=== PATIENT | male | born 1980 | race Caucasian/White ===

== ENCOUNTER 2018-09-22 21:05 | Inpatient (IN) ==
[2018-09-22 22:33] LABS: Albumin Level 3.7 gm/dl (3.4-5.0); BUN Creatinine Ratio 10.3 (10-20); Calcium 9.4 mg/dl (8.5-10.1); Creatinine Clr Calc Pharmacy 91.8 ml/min; Est GFR (African American) 90.5; Est GFR (Non-African American) 78.1; Potassium 3.9 mmol/L (3.5-5.1)
[2018-09-22 22:36] LABS: Albumin Globulin Ratio 0.8 (0.9-2); Bilirubin,Total 0.8 mg/dl (0.2-1); Globulin 4.8 gm/dl (2.5-4.0); Total Protein 8.5 gm/dl (6.4-8.2)
[2018-09-22] MEDS ORDERED: SODIUM CHLORIDE 0.9% 1000ML 1,000 ML IV ONE (22:37)
[2018-09-22] MEDS ORDERED: ACETAMINOPHEN 500 MG TAB PO STA (22:37)
[2018-09-22 23:03] LABS: Hematocrit (blood only) 32.5 % (42-52); Hemoglobin 11.9 g/dL (14.0-18.0); Mean Corpuscular Hgb Conc 36.6 g/dL (32-36); Mean Corpuscular Volume 82.3 fL (80-100); Mean Platelet Volume 9.8 fL (7.4-10.4); Platelet Count 70 K/uL (130-400); RDW Standard Deviation 36.1 fL (36.4-46.3); Red Blood Count 3.95 M/uL (4.7-6.1); White Blood Count 0.29 K/uL (4.8-10.8)
[2018-09-22] MEDS ORDERED: CEFEPIME 2,000 MG/20 ML VIAL IV STA (23:30)
[2018-09-23] MEDS ORDERED: SODIUM CHLORIDE 0.9% 1000ML 1,000 ML IV ONE (00:16)
[2018-09-23] MEDS ORDERED: VANCOMYCIN HCL 1,500 MG in SODIUM CHLORIDE 0.9% 500 ML IV ONE (00:16)
[2018-09-23] MEDS ORDERED: VANCOMYCIN CONSULT ACTIVE PRN (00:16)
[2018-09-23 00:32] LABS: Appearance Urine Clear (Clear); Bilirubin Urine Negative (Negative); Blood Urine Negative (Negative); Color Urine Yellow; Glucose Urine UA Negative (Negative); Ketones Urine Negative (Negative); Leukocyte Esterase Urine Negative (Negative); Nitrite Urine Negative (Negative); Protein Urine Negative (Negative); Urobilinogen Urine Negative (Negative)
--- NOTE | 2018-09-23 02:06 | History & Physical Report ---
Date of Service September 23, 2018 Assessment & Plan (1) Neutropenic fever: 37-year-old male with a history of type 2 diabetes, recent diagnosis of testicular cancer on chemotherapy presents with neutropenic fever. He has had URI symptoms since Saturday. He presented to the emergency room tachycardic and with a fever of 37.9, white count was 290. Neutropenic fever �Discussed with Dr. Alexander, recommends admission �Received vancomycin and cefepime in the ED �Continuing cefepime 2 g every 8 �IV fluids��normal saline 125 cc/h �Isolation precautions Testicular cancer �Status post orchiectomy �Has been on chemotherapy through 3 weeks Type 2 diabetes �Sliding scale insulin �Diabetic diet DVT prophylaxis �Lovenox CODE STATUS Full code (2) Testicular cancer: (3) Diabetes mellitus, type 2: History of Present Illness Patient was diagnosed testicular cancer Primary Care Provider: Tim De Paz 47-year-old male with history of diabetes and recent diagnosis of testicular cancer presents with neutropenic fever. Patient states that he started having upper respiratory symptoms over the weekend. Symptoms include; sore throat, fevers, mouth sores. He denies having nausea/vomiting/diarrhea. He denies abdominal pain. He denies dysuria, shortness of breath, cough, skin lesions. Patient was diagnosed with testicular cancer on July 15 and had a orchiectomy on the . He was discovered to have hilar lymph node involvement and was subsequently started on chemotherapy 3 weeks ago. 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 Allergies Allergy/AdvReac Type Severity Reaction Status Date / Time No Known Allergies Allergy Verified 09/22/18 22:33 Home Medications Home Medications Medication Instructions Recorded Confirmed Type cyanocobalamin (vitamin B-12) 1,000 mcg PO DAILY 07/17/18 09/22/18 History [Vitamin B-12] ondansetron HCl [Zofran] 4 mg PO Q6H PRN #7 tab 08/13/18 09/22/18 Rx cholecalciferol (vitamin D3) 2,000 unit PO DAILY 09/22/18 09/22/18 History [Vitamin D3] insulin lispro [Humalog KwikPen 0 unit SUBCUT TID PRN 09/22/18 09/22/18 History Insulin] metformin 1,000 mg PO QPM 09/22/18 09/22/18 History metformin 500 mg PO QAM 09/22/18 09/22/18 History Past Med/Surg History Medical History Testicular cancer Diabetes mellitus, type 2 NIDDM Surgical History History of surgical removal of testicle LEFT Hx of oral surgery HAD TOOTH RAISED FROM GUM LINE FOR BRACES WITH ANESTHESIA Family History Father Family history of diabetes mellitus Aunt Family history of diabetes mellitus Social History Preferred Language: Upper Sorbian Communication Ability: Effective Beliefs That Will Affect Care: None Current Living Situation: Spouse Feels Safe at Home: Yes Smoking Status: Former smoker Tobacco Type: cigars Cigarettes Per Day: 1 YEARLY Second Hand Exposure: No Hx Alcohol Use: Yes Alcohol type: wine Hx Substance Use: No Review of Systems Review of Systems: All systems reviewed & are unremarkable except as noted in HPI & below Physical Exam Constitutional: WD/WN, vitals as above Eyes: PERRL, conjunctivae normal, anicteric sclerae ENMT: external ear and nose normal, oropharynx normal Neck: trachea midline, no thyromegaly Respiratory: normal respiratory effort, lungs clear to auscultation Cardiovascular: RRR, no murmur, no edema Gastrointestinal (Abdomen): normal bowel sounds, soft, nontender, no hepatosplenomegaly Musculoskeletal: no cyanosis or clubbing, extremities motor strength 5/5 Skin: no rashes, warm and dry Neurologic: patellar DTR's 2+ bilat, sensation intact Psychiatric: A+Ox3, euthymic affect Results & Data Vital Signs (Past 12 Hours) Vital Signs Temp Pulse Pulse Resp BP BP Pulse Ox 09/23/18 00:16 37.9 C H 115 H 16 118/76 97 09/22/18 23:15 92 H 16 119/75 96 09/22/18 21:10 38.3 C H 140 H 16 117/84 100 Code Status & VTE Plan Code Status Full Supervising Physician Co-Signing Physician Notes Attending addendum: I have physically seen this patient, have supervised the medical residents activities, and agree with the H&P unless as otherwise noted. Assessment and Plan: Neutropenic fever/testicular cancer status post orchiectomy on chemotherapy x3 weeks- Empiric treatment with vancomycin and cefepime IV. Follow blood cultures, urine cultures and sputum cultures. Neutropenic precautions. NSS at 125 mL's per hour. Consult oncology Dr. Alexander. Remaining orders and notations as noted. Resident Activity Tracking Resident Involvement: Resident Care Provided Care Provided: Adult [facility]
--- NOTE | 2018-09-23 02:31 | Emergency Department Note ---
History of Present Illness General Chief complaint: Illness Stated complaint: TEMP 102.4, CANCER PT,FATIGUE,MOUTH SORES Source: patient Mode of arrival: ambulatory Limitations: no limitations History of Present Illness Maximum Pain Intensity: 1 This is a 37-year-old male who presents to the emergency department complaining of a fever. The patient states that over the past 2 days, he has had a sore throat, nasal congestion and mild cough. He states that he has felt chilled, but has not taken his temperature until tonight when he noticed he had a fever. The patient states that he is currently undergoing chemotherapy for testicular cancer. Dr. Pierce is his oncologist. He does state he has had some sores in his mouth over the past several days. He denies any chest pain, shortness of breath, abdominal pain, nausea/vomiting or urinary symptoms. He denies any neck pain/stiffness or severe headache. He has been taking Tylenol at home intermittently for his symptoms and his last dose was this morning. Home Medications Home Medications Medication Instructions Recorded Confirmed Type cyanocobalamin (vitamin B-12) 1,000 mcg PO DAILY 07/17/18 09/22/18 History [Vitamin B-12] ondansetron HCl [Zofran] 4 mg PO Q6H PRN #7 tab 08/13/18 09/22/18 Rx cholecalciferol (vitamin D3) 2,000 unit PO DAILY 09/22/18 09/22/18 History [Vitamin D3] insulin lispro [Humalog KwikPen 0 unit SUBCUT TID PRN 09/22/18 09/22/18 History Insulin] metformin 1,000 mg PO QPM 09/22/18 09/22/18 History metformin 500 mg PO QAM 09/22/18 09/22/18 History Allergies Allergy/AdvReac Type Severity Reaction Status Date / Time No Known Allergies Allergy Verified 09/22/18 22:33 Past Med/Surg History Medical History Diabetes mellitus, type 2 NIDDM Surgical History History of surgical removal of testicle LEFT Hx of oral surgery HAD TOOTH RAISED FROM GUM LINE FOR BRACES WITH ANESTHESIA Social History Preferred Language: Frisian Communication Ability: Effective Floor Worker Required: No Beliefs That Will Affect Care: None Current Living Situation: Spouse Feels Safe at Home: Yes Safety Concerns: Feels Safe At This Time Smoking Status: Former smoker Tobacco Type: cigars Cigarettes Per Day: 1 YEARLY Second Hand Exposure: No Hx Alcohol Use: Yes Alcohol type: wine Hx Substance Use: No Review of Systems A total of 10 systems reviewed and were otherwise negative Physical Exam Vital Signs Vital Signs - 24 hr 09/22/18 21:10 09/22/18 23:15 09/23/18 00:16 Temperature 38.3 C H 37.9 C H Temperature Source Oral Oral Sepsis Recent Fever Within 48 Hours Yes Sepsis Action Taken by Nursing No Action Required Pulse Rate 140 H Pulse Rate [Right Finger] 92 H 115 H Pulse Rhythm [Right Finger] Regular Regular Pulse Strength [Right Finger] Normal Normal Respiratory Rate 16 16 16 Respiratory Effort / Characteristics Non-Labored Non-Labored Respiratory Depth Normal Normal Respiratory Pattern Regular Blood Pressure 117/84 Blood Pressure [Right Arm] 119/75 118/76 Blood Pressure Mean 95 Blood Pressure Mean [Right Arm] 89 90 Blood Pressure Position [Right Arm] Lying Pulse Oximetry 100 96 97 Oxygen Delivery Method Room Air Room Air Room Air VITALS: Vitals are noted on the nurse's note and reviewed by myself. Vital signs stable. GENERAL: This is a 37-year-old male, in no acute distress, nondiaphoretic, well- developed well-nourished. SKIN: The skin was without rashes. EARS: External auditory canals clear, tympanic membranes pearly doan without erythema or effusion bilaterally. EYES: Pupils equal round and reactive to light and accommodation. NOSE: Patent, turbinates without inflammation or discharge. No sinus tenderness. MOUTH: Mucous membranes moist. There are a few scattered white patches to the upper and lower gums. NECK: Supple without nuchal rigidity. No lymphadenopathy. HEART: Regular rate and rhythm without murmurs gallops or rubs. LUNGS: Clear to auscultation bilaterally without wheezes, rales or rhonchi. ABDOMEN: Positive bowel sounds x 4. Soft, nontender to palpation. NEURO: Patient was alert and oriented to person place and time. Course Consultations Consultation #1: Dr. Warren - [facility] [place] for admission. Administered Medications Enoxaparin Sodium (Lovenox) 40 mg SQ Q24H NIRALI Stop: 10/23/18 07:59 Last Admin: 09/23/18 08:40 Dose: 40 mg Documented by: [id number] Cefepime HCl 2,000 mg/ Syringe 20 mls @ 5.5 mls/min IV Q8H NIRALI; Protocol Stop: 09/25/18 07:59 Last Admin: 09/23/18 08:41 Dose: 5.5 mls/min Documented by: [id number] Sodium Chloride (Nss 1000ml) 1,000 mls @ 125 mls/hr IV .Q8H NIRALI Stop: 09/23/18 18:28 Last Admin: 09/23/18 03:37 Dose: 125 mls/hr Documented by: [id number] Insulin Aspart (Novolog Flexpen) 0 units SC ACHS NIRALI Stop: 10/23/18 07:29 Last Admin: 09/23/18 08:41 Dose: 3 units Documented by: [id number] Cosigned by: [id number] Discontinued Medications Acetaminophen (Tylenol) 1,000 mg PO NOW STA Stop: 09/22/18 22:38 Last Admin: 09/22/18 22:55 Dose: 1,000 mg Documented by: [id number] Sodium Chloride (Nss 1000ml) 1,000 mls @ 999 mls/hr IV .Q1H1M ONE Stop: 09/22/18 23:37 Last Infusion: 09/22/18 22:58 Dose: 0 mls/hr Documented by: [id number] Admin: 09/22/18 22:30 Dose: 999 mls/hr Documented by: [id number] Cefepime HCl (Maxipime) 2,000 mg in 20 mls @ 5 mls/min IV NOW STA; Protocol Stop: 09/22/18 23:33 Last Admin: 09/22/18 23:42 Dose: 5 mls/min Documented by: [id number] Sodium Chloride (Nss 1000ml) 1,000 mls @ 999 mls/hr IV .Q1H1M ONE Stop: 09/23/18 01:16 Last Infusion: 09/23/18 03:39 Dose: 0 mls/hr Documented by: [id number] Admin: 09/23/18 00:45 Dose: 999 mls/hr Documented by: [id number] Vancomycin HCl 1,500 mg/ (Sodium Chloride) 530 mls @ 200 mls/hr IV NOW ONE; Protocol Stop: 09/23/18 02:54 Last Infusion: 09/23/18 04:31 Dose: 0 mls/hr Documented by: [id number] Admin: 09/23/18 00:45 Dose: 200 mls/hr Documented by: [id number] Medical Decision Making Differential Diagnosis Differential diagnosis includes neutropenic fever, sepsis, pneumonia, UTI, cellulitis, viral illness, among others. Home Medications Current Medication List: was personally reviewed by me Laboratory Data Attestation: I reviewed the patient's lab results. Result diagrams: 09/22/18 21:43 09/22/18 21:43 Lab Results 09/22/18 09/22/18 09/22/18 Range/Units 21:43 21:43 21:43 WBC 0.29 L* (4.8-10.8) K/uL RBC 3.95 L (4.7-6.1) M/uL Hgb 11.9 L (14.0-18.0) g/dL Hct 32.5 L (42-52) % MCV 82.3 (80-100) fL MCH 30.1 (25-34) pg MCHC 36.6 H (32-36) g/dL RDW Std Deviation 36.1 L (36.4-46.3) fL RDW Coeff of Christian 12.0 (11.5-14.5) % Plt Count 70 L (130-400) K/uL MPV 9.8 (7.4-10.4) fL Immature Gran % (Auto) Cancelled Neut % (Auto) Cancelled Lymph % (Auto) Cancelled Ware % (Auto) Cancelled Eos % (Auto) Cancelled Baso % (Auto) Cancelled Immature Gran # (Auto) Cancelled Neut # (Auto) Cancelled Lymph # (Auto) Cancelled Ware # (Auto) Cancelled Eos # (Auto) Cancelled Baso # (Auto) Cancelled Neutrophils % (Manual) Cancelled Band Neutrophils % Cancelled Lymphocytes % (Manual) Cancelled Prolymphocyte % Cancelled Reactive Lymphs % (Man) Cancelled Monocytes % (Manual) Cancelled Eosinophils % (Manual) Cancelled Basophils % (Manual) Cancelled Metamyelocytes % (Man) Cancelled Myelocytes % (Man) Cancelled Promyelocytes % (Man) Cancelled Blast Cells % (Manual) Cancelled Plasma Cell % (Manual) Cancelled Other Cells % Cancelled Nucleated RBC % Cancelled Neutrophils # (Manual) Cancelled Band Neutrophils # Cancelled Total Absolute Neuts Cancelled Lymphocytes # (Manual) Cancelled Prolymphocyte # Cancelled Reactive Lymphs # Cancelled Total Abs Lymphocytes Cancelled Monocytes # (Manual) Cancelled Eosinophils # (Manual) Cancelled Basophils # (Manual) Cancelled Metamyelocytes # (Man) Cancelled Myelocytes # (Manual) Cancelled Promyelocytes # (Man) Cancelled Blast Cells # (Man) Cancelled Plasma Cell # (Manual) Cancelled Other Cells # Cancelled Nucleated RBCs # (Man) Cancelled Hypersegmented Neuts Cancelled Hyposegmented Neuts Cancelled Hypogranular Neuts Cancelled Large Granular Lymphs Cancelled # Lrg Granular Lymphs Cancelled Hairy Cells Cancelled Smudge Cells Cancelled Toxic Granulation Cancelled Toxic Vacuolation Cancelled Dohle Bodies Cancelled Riley Rods Cancelled Hypogranular Platelets Cancelled Clumped Platelets Cancelled Giant Platelets Cancelled Platelet Satelliting Cancelled RBC Morphology Cancelled Polychromasia Cancelled Hypochromasia Cancelled Poikilocytosis Cancelled Basophilic Stippling Cancelled Anisocytosis Cancelled Microcytosis Cancelled Macrocytosis Cancelled Spherocytes Cancelled Pappenheimer Bodies Cancelled Sickle Cells Cancelled Target Cells Cancelled Tear Drop Cells Cancelled Ovalocytes Cancelled Stomatocytes Cancelled Blood-[place] Bodies Cancelled Echinocytes Cancelled Acanthocytes (Spur) Cancelled Rouleaux Cancelled RBC Agglutinates Cancelled Schistocytes Cancelled RBC Morph Comment Cancelled Sezary Cell Cancelled PT 11.2 (9.0-12.0) Seconds INR 1.1 (0.9-1.1) Sodium 132 L (136-145) mmol/L Potassium 3.9 (3.5-5.1) mmol/L Chloride 96 L (98-107) mmol/L Carbon Dioxide 28 (21-32) mmol/L Anion Gap 8.0 (3-11) BUN 12 (7-18) mg/dl Creatinine 1.19 (0.6-1.4) mg/dl Est Cr Clr Drug Dosing 91.8 ml/min Est GFR ( Amer) 90.5 Est GFR (Non-Af Amer) 78.1 BUN/Creatinine Ratio 10.3 (10-20) Glucose 176 H (70-99) mg/dl Lactate (0.4-2.0) mmol/L Calcium 9.4 (8.5-10.1) mg/dl Total Bilirubin 0.8 (0.2-1) mg/dl AST 19 (15-37) U/L ALT 36 (12-78) U/L Alkaline Phosphatase 78 (45-117) U/L Total Protein 8.5 H (6.4-8.2) gm/dl Albumin 3.7 (3.4-5.0) gm/dl Globulin 4.8 H (2.5-4.0) gm/dl Albumin/Globulin Ratio 0.8 L (0.9-2) Urine Color Urine Appearance (Clear) Urine pH (4.5-7.5) Ur Specific Munger (1.000-1.030) Urine Protein (Negative) Urine Glucose (UA) (Negative) Urine Ketones (Negative) Urine Blood (Negative) Urine Nitrite (Negative) Urine Bilirubin (Negative) Urine Urobilinogen (Negative) Ur Leukocyte Esterase (Negative) Influenza Type A Ag (Neg) Influenza Type B Ag (Neg) 09/22/18 09/22/18 09/23/18 Range/Units 23:15 23:44 00:05 WBC (4.8-10.8) K/uL RBC (4.7-6.1) M/uL Hgb (14.0-18.0) g/dL Hct (42-52) % MCV (80-100) fL MCH (25-34) pg MCHC (32-36) g/dL RDW Std Deviation (36.4-46.3) fL RDW Coeff of Christian (11.5-14.5) % Plt Count (130-400) K/uL MPV (7.4-10.4) fL Immature Gran % (Auto) Neut % (Auto) Lymph % (Auto) Ware % (Auto) Eos % (Auto) Baso % (Auto) Immature Gran # (Auto) Neut # (Auto) Lymph # (Auto) Ware # (Auto) Eos # (Auto) Baso # (Auto) Neutrophils % (Manual) Band Neutrophils % Lymphocytes % (Manual) Prolymphocyte % Reactive Lymphs % (Man) Monocytes % (Manual) Eosinophils % (Manual) Basophils % (Manual) Metamyelocytes % (Man) Myelocytes % (Man) Promyelocytes % (Man) Blast Cells % (Manual) Plasma Cell % (Manual) Other Cells % Nucleated RBC % Neutrophils # (Manual) Band Neutrophils # Total Absolute Neuts Lymphocytes # (Manual) Prolymphocyte # Reactive Lymphs # Total Abs Lymphocytes Monocytes # (Manual) Eosinophils # (Manual) Basophils # (Manual) Metamyelocytes # (Man) Myelocytes # (Manual) Promyelocytes # (Man) Blast Cells # (Man) Plasma Cell # (Manual) Other Cells # Nucleated RBCs # (Man) Hypersegmented Neuts Hyposegmented Neuts Hypogranular Neuts Large Granular Lymphs # Lrg Granular Lymphs Hairy Cells Smudge Cells Toxic Granulation Toxic Vacuolation Dohle Bodies Riley Rods Hypogranular Platelets Clumped Platelets Giant Platelets Platelet Satelliting RBC Morphology Polychromasia Hypochromasia Poikilocytosis Basophilic Stippling Anisocytosis Microcytosis Macrocytosis Spherocytes Pappenheimer Bodies Sickle Cells Target Cells Tear Drop Cells Ovalocytes Stomatocytes Blood-[place] Bodies Echinocytes Acanthocytes (Spur) Rouleaux RBC Agglutinates Schistocytes RBC Morph Comment Sezary Cell PT (9.0-12.0) Seconds INR (0.9-1.1) Sodium (136-145) mmol/L Potassium (3.5-5.1) mmol/L Chloride (98-107) mmol/L Carbon Dioxide (21-32) mmol/L Anion Gap (3-11) BUN (7-18) mg/dl Creatinine (0.6-1.4) mg/dl Est Cr Clr Drug Dosing ml/min Est GFR ( Amer) Est GFR (Non-Af Amer) BUN/Creatinine Ratio (10-20) Glucose (70-99) mg/dl Lactate 1.0 (0.4-2.0) mmol/L Calcium (8.5-10.1) mg/dl Total Bilirubin (0.2-1) mg/dl AST (15-37) U/L ALT (12-78) U/L Alkaline Phosphatase (45-117) U/L Total Protein (6.4-8.2) gm/dl Albumin (3.4-5.0) gm/dl Globulin (2.5-4.0) gm/dl Albumin/Globulin Ratio (0.9-2) Urine Color Yellow Urine Appearance Clear (Clear) Urine pH 7.0 (4.5-7.5) Ur Specific Munger 1.010 (1.000-1.030) Urine Protein Negative (Negative) Urine Glucose (UA) Negative (Negative) Urine Ketones Negative (Negative) Urine Blood Negative (Negative) Urine Nitrite Negative (Negative) Urine Bilirubin Negative (Negative) Urine Urobilinogen Negative (Negative) Ur Leukocyte Esterase Negative (Negative) Influenza Type A Ag Neg for Influ A (Neg) Influenza Type B Ag Neg for Influ B (Neg) Imaging Data Attestation: I personally reviewed and interpreted this imaging study as follows: My Impression: CHEST 1 VIEW: No evidence of pneumonia or pneumothorax. Cardiac silhouette normal. Blood Pressure Blood Pressure Findings: Normal blood pressure MDM Narrative The patient is a 37-year-old male currently on chemotherapy for testicular cancer who presents today complaining of fever. Labs revealed leukopenia with a white blood cell count of 0.29. Lactate is not elevated. Blood cultures drawn and pending. Chest x-ray does not show any evidence of pneumonia. Influenza testing negative. Urinalysis not suggestive of UTI. Given patient's neutropenia, he will be started on broad-spectrum antibiotics and admitted to the hospitalist service for further evaluation and care. Patient remained stable while in the emergency department. He was given fluid resuscitation as well as initial doses of cefepime and vancomycin. Impression & Plan Neutropenic fever Discharge Plan Visit Data *Final* Discharge Date/Time: 09/23/18 02:10 Chief Complaint: Illness Stated Complaint: TEMP 102.4, CANCER PT,FATIGUE,MOUTH SORES ED Provider: Antonio Alonso ED Midlevel Provider: Kathy Juárez Discharge Problem: Neutropenic fever Patient Disposition: Admitted As Inpatient Discharge Instructions Interventions: ED Discharge Assessment Last Done: 09/23/18 02:10
[2018-09-23] MEDS ORDERED: DEXTROSE 50% 50 ML SYRINGE IV PRN (02:45)
[2018-09-23] MEDS ORDERED: GLUCAGON FOR INJ 1 MG VIAL SQ PRN (02:45)
[2018-09-23] MEDS ORDERED: CARBOHYDRATES FOR HYPOGLYCEMIA PO PRN (02:45)
[2018-09-23] MEDS ORDERED: GLUCOSE 10 TABS/TUBE PO PRN (02:45)
[2018-09-23] MEDS ORDERED: GLUCOSE 40% GEL 15 GM TUBE PO PRN (02:45)
[2018-09-23] MEDS: SODIUM CHLORIDE 0.9% 1000ML 1,000 ML IV SCH ×2 (03:37→11:03)
[2018-09-23 06:59] LABS: INR 1.1 (0.9-1.1); Prothrombin Time 11.2 Seconds (9.0-12.0)
--- NOTE | 2018-09-23 07:06 | XRay Report ---
SINGLE VIEW CHEST CLINICAL HISTORY: Fever. FINDINGS: An AP, portable, upright chest radiograph is obtained. No prior studies are available for c omparison at the time of dictation. The examination is degraded by portable technique and patient rot ation. The cardiomediastinal silhouette is unremarkable. The lungs and pleural spaces are clear. No pneumothorax is seen. The bony thorax is grossly intact. IMPRESSION: No active disease in the chest. Electronically signed by: Maicol Harmon M.D. 09/23/2018 7:04 AM
[2018-09-23] MEDS: ENOXAPARIN INJ 40 MG/0.4 ML SYR SQ SCH (08:40)
[2018-09-23] MEDS: INSULIN ASPART 100 UNITS/ML 3 ML PEN SC SCH ×4 (08:41→20:37)
[2018-09-23] MEDS: CEFEPIME 2,000 MG in SYRINGE 7.5 ML IV SCH ×3 (08:41→23:08)
[2018-09-23] MEDS ORDERED: BLEOMYCIN SULFATE IV SCH (15:30)
[2018-09-23] MEDS ORDERED: SODIUM CHLORIDE 0.9% IV SCH (15:30)
[2018-09-23] MEDS: ACETAMINOPHEN 325 MG TAB PO PRN ×2 (15:38→20:35)
--- NOTE | 2018-09-23 16:18 | Oncology Consultation ---
Date of Consultation September 23, 2018 Assessment & Plan (1) Neutropenic fever: He has febrile neutropenia with no localizing signs or symptoms for a bacterial infection. These events are often due to bacterial translocation from the gut to the bloodstream. He should receive broad-spectrum, anti-pseudomonal gram negative coverage. His current therapy is adequate. Unless there is an obvious source of a gram-positive infection, we typically do not empirically treat patients with febrile neutropenia with gram-positive coverage. However, if he is not improving in the next 24-48 hours, we could add vancomycin. I would continue antibiotics for now, but if he remains afebrile for ~48 hours or so and we do not find a source of infection, we can hold his antibiotics. Present on Admission?: Yes (2) Testicular cancer: He is due for bleomycin today. While his neutropenia is of concern, he has a high risk but curable cancer and so maintaining dose-intensity is imperative. Furthermore, bleomycin is not a particularly myelosuppressive agent. As a result, and particularly since he is looking and feeling so well, I would like to administer his scheduled dose of chemo today. I provided orders and a signed consent to the floor and we will plan on treatment later today. History of Present Illness Reason for Consultation: Febrile neutropenia Testicular cancer Attending Physician: Rafi Sanchez MD History of Present Illness Mr. 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 He underwent orchiectomy in late June, and was later found to have a 6 cm left para- aortic lymph node mass. As a result, he started adjuvant chemotherapy with BEP on 09/08/18. He called over the weekend complaining of a fever of 102 and was directed to the ER. There, he was found to be neutropenic, with a total WBC count of 0.29, along with moderate thrombocytopenia. He denies any localizing signs of bacterial infection, though he does note some sinusitis and congestion. He has no pain and denies any nausea, neuropathic symptoms, diarrhea, or other complications of chemotherapy. He was due to receive a final dose of bleomycin in our office today. He had some self-limited, scant epistaxis over the weekend but denies any severe or uncontrollable bleeding. Allergies Allergy/AdvReac Type Severity Reaction Status Date / Time No Known Allergies Allergy Verified 09/22/18 22:33 Home Medications Home Medications Medication Instructions Recorded Confirmed Type cyanocobalamin (vitamin B-12) 1,000 mcg PO DAILY 07/17/18 09/22/18 History [Vitamin B-12] ondansetron HCl [Zofran] 4 mg PO Q6H PRN #7 tab 08/13/18 09/22/18 Rx cholecalciferol (vitamin D3) 2,000 unit PO DAILY 09/22/18 09/22/18 History [Vitamin D3] insulin lispro [Humalog KwikPen 0 unit SUBCUT TID PRN 09/22/18 09/22/18 History Insulin] metformin 1,000 mg PO QPM 09/22/18 09/22/18 History metformin 500 mg PO QAM 09/22/18 09/22/18 History Patient History Medical History Testicular cancer Diabetes mellitus, type 2 NIDDM Surgical History History of surgical removal of testicle LEFT Hx of oral surgery HAD TOOTH RAISED FROM GUM LINE FOR BRACES WITH ANESTHESIA Family History Father Family history of diabetes mellitus Aunt Family history of diabetes mellitus Social History Preferred Language: Kazakh Communication Ability: Effective Checker Dump Grounds Required: No Beliefs That Will Affect Care: None Current Living Situation: Spouse Feels Safe at Home: Yes Safety Concerns: Feels Safe At This Time Smoking Status: Former smoker Tobacco Type: cigars Cigarettes Per Day: 1 YEARLY Second Hand Exposure: No Hx Alcohol Use: Yes Alcohol type: wine Hx Substance Use: No Review of Systems Constitutional: + fever and + fatigue; no sweats and no weight loss Eyes: no worsening vision Ear, Nose, Mouth, Throat: + nasal congestion and + epistaxis; no bleeding gums Respiratory: no cough and no dyspnea Cardiovascular: no chest pain, no palpitations and no edema Gastrointestinal: no abdominal pain, no nausea, no vomiting and no diarrhea/loose stools Genitourinary: no dysuria, no urinary frequency and no hematuria Musculoskeletal: no back pain and no joint pain Integumentary: no rash and no bleeding lesions Neurologic: no dizziness and no headache(s) Hematologic / Lymphatic: no easy bleeding and no night sweats Physical Exam Constitutional: WD/WN, vitals as above Eyes: + anicteric sclerae and EOM intact bilaterally ENMT: external ear and nose normal, oropharynx normal Respiratory: normal respiratory effort, lungs clear to auscultation Cardiovascular: RRR, no murmur, no edema Gastrointestinal (Abdomen): normal bowel sounds, soft, nontender, no hepatosplenomegaly Skin: no rashes, warm and dry Psychiatric: A+Ox3, euthymic affect Lymphatic: no cervical or axillary lymphadenopathy Results & Data Vital Signs (Past 12 Hours) Vital Signs Temp Pulse Resp BP Pulse Ox 09/23/18 15:16 37.9 C H 106 H 16 115/74 93 09/23/18 13:23 37.5 C 09/23/18 12:00 38.1 C H 116 H 18 127/81 95 09/23/18 07:33 37.6 C H 101 H 18 125/79 95 Laboratory Results Laboratory Results - last 24 hr 09/22/18 09/22/18 09/22/18 21:43 21:43 21:43 WBC 0.29 L* RBC 3.95 L Hgb 11.9 L Hct 32.5 L MCV 82.3 MCH 30.1 MCHC 36.6 H RDW Std Deviation 36.1 L RDW Coeff of Christian 12.0 Plt Count 70 L MPV 9.8 Immature Gran % (Auto) Cancelled Neut % (Auto) Cancelled Lymph % (Auto) Cancelled Hood % (Auto) Cancelled Eos % (Auto) Cancelled Baso % (Auto) Cancelled Immature Gran # (Auto) Cancelled Neut # (Auto) Cancelled Lymph # (Auto) Cancelled Hood # (Auto) Cancelled Eos # (Auto) Cancelled Baso # (Auto) Cancelled Neutrophils % (Manual) Cancelled Band Neutrophils % Cancelled Lymphocytes % (Manual) Cancelled Prolymphocyte % Cancelled Reactive Lymphs % (Man) Cancelled Monocytes % (Manual) Cancelled Eosinophils % (Manual) Cancelled Basophils % (Manual) Cancelled Metamyelocytes % (Man) Cancelled Myelocytes % (Man) Cancelled Promyelocytes % (Man) Cancelled Blast Cells % (Manual) Cancelled Plasma Cell % (Manual) Cancelled Other Cells % Cancelled Nucleated RBC % Cancelled Neutrophils # (Manual) Cancelled Band Neutrophils # Cancelled Total Absolute Neuts Cancelled Lymphocytes # (Manual) Cancelled Prolymphocyte # Cancelled Reactive Lymphs # Cancelled Total Abs Lymphocytes Cancelled Monocytes # (Manual) Cancelled Eosinophils # (Manual) Cancelled Basophils # (Manual) Cancelled Metamyelocytes # (Man) Cancelled Myelocytes # (Manual) Cancelled Promyelocytes # (Man) Cancelled Blast Cells # (Man) Cancelled Plasma Cell # (Manual) Cancelled Other Cells # Cancelled Nucleated RBCs # (Man) Cancelled Hypersegmented Neuts Cancelled Hyposegmented Neuts Cancelled Hypogranular Neuts Cancelled Large Granular Lymphs Cancelled # Lrg Granular Lymphs Cancelled Hairy Cells Cancelled Smudge Cells Cancelled Toxic Granulation Cancelled Toxic Vacuolation Cancelled Dohle Bodies Cancelled Riley Rods Cancelled Hypogranular Platelets Cancelled Clumped Platelets Cancelled Giant Platelets Cancelled Platelet Satelliting Cancelled RBC Morphology Cancelled Polychromasia Cancelled Hypochromasia Cancelled Poikilocytosis Cancelled Basophilic Stippling Cancelled Anisocytosis Cancelled Microcytosis Cancelled Macrocytosis Cancelled Spherocytes Cancelled Pappenheimer Bodies Cancelled Sickle Cells Cancelled Target Cells Cancelled Tear Drop Cells Cancelled Ovalocytes Cancelled Stomatocytes Cancelled Blood-Lykens Bodies Cancelled Echinocytes Cancelled Acanthocytes (Spur) Cancelled Rouleaux Cancelled RBC Agglutinates Cancelled Schistocytes Cancelled RBC Morph Comment Cancelled Sezary Cell Cancelled PT 11.2 INR 1.1 Sodium 132 L Potassium 3.9 Chloride 96 L Carbon Dioxide 28 Anion Gap 8.0 BUN 12 Creatinine 1.19 Est Cr Clr Drug Dosing 91.8 Est GFR ( Amer) 90.5 Est GFR (Non-Af Amer) 78.1 BUN/Creatinine Ratio 10.3 Glucose 176 H POC Glucose Lactate Calcium 9.4 Total Bilirubin 0.8 AST 19 ALT 36 Alkaline Phosphatase 78 Total Protein 8.5 H Albumin 3.7 Globulin 4.8 H Albumin/Globulin Ratio 0.8 L Urine Color Urine Appearance Urine pH Ur Specific Cedar Urine Protein Urine Glucose (UA) Urine Ketones Urine Blood Urine Nitrite Urine Bilirubin Urine Urobilinogen Ur Leukocyte Esterase Influenza Type A Ag Influenza Type B Ag 09/22/18 09/22/18 09/23/18 23:15 23:44 00:05 WBC RBC Hgb Hct MCV MCH MCHC RDW Std Deviation RDW Coeff of Christian Plt Count MPV Immature Gran % (Auto) Neut % (Auto) Lymph % (Auto) Hood % (Auto) Eos % (Auto) Baso % (Auto) Immature Gran # (Auto) Neut # (Auto) Lymph # (Auto) Hood # (Auto) Eos # (Auto) Baso # (Auto) Neutrophils % (Manual) Band Neutrophils % Lymphocytes % (Manual) Prolymphocyte % Reactive Lymphs % (Man) Monocytes % (Manual) Eosinophils % (Manual) Basophils % (Manual) Metamyelocytes % (Man) Myelocytes % (Man) Promyelocytes % (Man) Blast Cells % (Manual) Plasma Cell % (Manual) Other Cells % Nucleated RBC % Neutrophils # (Manual) Band Neutrophils # Total Absolute Neuts Lymphocytes # (Manual) Prolymphocyte # Reactive Lymphs # Total Abs Lymphocytes Monocytes # (Manual) Eosinophils # (Manual) Basophils # (Manual) Metamyelocytes # (Man) Myelocytes # (Manual) Promyelocytes # (Man) Blast Cells # (Man) Plasma Cell # (Manual) Other Cells # Nucleated RBCs # (Man) Hypersegmented Neuts Hyposegmented Neuts Hypogranular Neuts Large Granular Lymphs # Lrg Granular Lymphs Hairy Cells Smudge Cells Toxic Granulation Toxic Vacuolation Dohle Bodies Riley Rods Hypogranular Platelets Clumped Platelets Giant Platelets Platelet Satelliting RBC Morphology Polychromasia Hypochromasia Poikilocytosis Basophilic Stippling Anisocytosis Microcytosis Macrocytosis Spherocytes Pappenheimer Bodies Sickle Cells Target Cells Tear Drop Cells Ovalocytes Stomatocytes Blood-Lykens Bodies Echinocytes Acanthocytes (Spur) Rouleaux RBC Agglutinates Schistocytes RBC Morph Comment Sezary Cell PT INR Sodium Potassium Chloride Carbon Dioxide Anion Gap BUN Creatinine Est Cr Clr Drug Dosing Est GFR ( Amer) Est GFR (Non-Af Amer) BUN/Creatinine Ratio Glucose POC Glucose Lactate 1.0 Calcium Total Bilirubin AST ALT Alkaline Phosphatase Total Protein Albumin Globulin Albumin/Globulin Ratio Urine Color Yellow Urine Appearance Clear Urine pH 7.0 Ur Specific Cedar 1.010 Urine Protein Negative Urine Glucose (UA) Negative Urine Ketones Negative Urine Blood Negative Urine Nitrite Negative Urine Bilirubin Negative Urine Urobilinogen Negative Ur Leukocyte Esterase Negative Influenza Type A Ag Neg for Influ A Influenza Type B Ag Neg for Influ B 09/23/18 09/23/18 07:59 12:07 WBC RBC Hgb Hct MCV MCH MCHC RDW Std Deviation RDW Coeff of Christian Plt Count MPV Immature Gran % (Auto) Neut % (Auto) Lymph % (Auto) Hood % (Auto) Eos % (Auto) Baso % (Auto) Immature Gran # (Auto) Neut # (Auto) Lymph # (Auto) Hood # (Auto) Eos # (Auto) Baso # (Auto) Neutrophils % (Manual) Band Neutrophils % Lymphocytes % (Manual) Prolymphocyte % Reactive Lymphs % (Man) Monocytes % (Manual) Eosinophils % (Manual) Basophils % (Manual) Metamyelocytes % (Man) Myelocytes % (Man) Promyelocytes % (Man) Blast Cells % (Manual) Plasma Cell % (Manual) Other Cells % Nucleated RBC % Neutrophils # (Manual) Band Neutrophils # Total Absolute Neuts Lymphocytes # (Manual) Prolymphocyte # Reactive Lymphs # Total Abs Lymphocytes Monocytes # (Manual) Eosinophils # (Manual) Basophils # (Manual) Metamyelocytes # (Man) Myelocytes # (Manual) Promyelocytes # (Man) Blast Cells # (Man) Plasma Cell # (Manual) Other Cells # Nucleated RBCs # (Man) Hypersegmented Neuts Hyposegmented Neuts Hypogranular Neuts Large Granular Lymphs # Lrg Granular Lymphs Hairy Cells Smudge Cells Toxic Granulation Toxic Vacuolation Dohle Bodies Riley Rods Hypogranular Platelets Clumped Platelets Giant Platelets Platelet Satelliting RBC Morphology Polychromasia Hypochromasia Poikilocytosis Basophilic Stippling Anisocytosis Microcytosis Macrocytosis Spherocytes Pappenheimer Bodies Sickle Cells Target Cells Tear Drop Cells Ovalocytes Stomatocytes Blood-Lykens Bodies Echinocytes Acanthocytes (Spur) Rouleaux RBC Agglutinates Schistocytes RBC Morph Comment Sezary Cell PT INR Sodium Potassium Chloride Carbon Dioxide Anion Gap BUN Creatinine Est Cr Clr Drug Dosing Est GFR ( Amer) Est GFR (Non-Af Amer) BUN/Creatinine Ratio Glucose POC Glucose 146 H 118 H Lactate Calcium Total Bilirubin AST ALT Alkaline Phosphatase Total Protein Albumin Globulin Albumin/Globulin Ratio Urine Color Urine Appearance Urine pH Ur Specific Cedar Urine Protein Urine Glucose (UA) Urine Ketones Urine Blood Urine Nitrite Urine Bilirubin Urine Urobilinogen Ur Leukocyte Esterase Influenza Type A Ag Influenza Type B Ag Diagnostic Findings CXR, 09/22/18: IMPRESSION: No active disease in the chest. (1) Testicular cancer Descendance of testis: descended Laterality: left Qualified Code(s): 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
[2018-09-23] MEDS ORDERED: DiphenhydrAMINE HCL 50 MG/ML VIAL IV PRN (16:55)
[2018-09-23] MEDS ORDERED: EPINEPHrine INJ 1 MG/ML AMP SC PRN (16:57)
[2018-09-23] MEDS ORDERED: methylPREDNISolone 125 MG in SYRINGE 0 ML IV PRN (16:59)
[2018-09-23] MEDS ORDERED: HYDROCORTISONE 100 MG *12cc Syringe IV PRN (17:01)
--- NOTE | 2018-09-23 17:28 | Hospitalist Progress Note ---
Date of Service September 23, 2018 Assessment & Plan (1) Neutropenic fever: He has febrile neutropenia and remains without localizing signs or symptoms for a bacterial infection. Pt will be continued on iv Cefepime and not restart vancomycin unless clinically indicated (2) Testicular cancer: He is due for bleomycin, he has a high risk but curable cancer and so maintaining dose-intensity is imperative. Furthermore, bleomycin is not a particularly myelosuppressive agent. As a result, and particularly since he is looking and feeling so well, Dr Guerra will administer his scheduled dose of chemotherapy 09/23. Subjective Patient feels much better he is aware of discussions with Dr. 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 He has not had significant fever throughout the day today Review of Systems Review of Systems: ROS: well nourished well developed. No double vision blurry vision No problems with speech or swallowing No palpitations, chest pain or pressure No Wheezing or breathing issues No abdominal pain nausea vomiting diarrhea changes in appetite or weight No burning urine urine frequency or changes in color No focal joint pain or muscle pain No skin rashes or oral lesions No unusual bruising or bleeding No focused back pain or numbness or loss of strength No changes in memory or confusion Physical Exam Physical Exam: The patient appeared well nourished and normally developed. Vital signs as documented. Head exam is unremarkable. normocephalic, atraumatic Neck is without jugular venous distension, thyromegaly, or lymphademopathy Lungs are clear to auscultation and percussion. Cardiac exam reveals Rhythm is regular. First and second heart sounds normal. Abdominal exam reveals normal bowel sounds, no masses, no organomegaly Extremities are nonedematous and both pedal pulses are present Neurologic exam is A&Ox3, no focal deficits, strength is equal bilateral Psychologically seems neither anxious or depressed Skin is warm Dry without bruises or lesions Results & Data Vital Signs (Past 12 Hours) Vital Signs Temp Pulse Resp BP Pulse Ox 09/23/18 16:30 37.2 C 09/23/18 15:16 37.9 C H 106 H 16 115/74 93 09/23/18 13:23 37.5 C 09/23/18 12:00 38.1 C H 116 H 18 127/81 95 09/23/18 07:33 37.6 C H 101 H 18 125/79 95 (1) Testicular cancer Descendance of testis: descended Laterality: left Qualified Code(s): 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
[2018-09-24 08:12] LABS: Hemoglobin 10.1 g/dL (14.0-18.0); Mean Corpuscular Hgb Conc 36.1 g/dL (32-36); Mean Corpuscular Volume 81.6 fL (80-100); Platelet Count 61 K/uL (130-400); RDW Coefficient of Variation 12.1 % (11.5-14.5); RDW Standard Deviation 35.9 fL (36.4-46.3); Red Blood Count 3.43 M/uL (4.7-6.1); White Blood Count 0.35 K/uL (4.8-10.8)
[2018-09-24] MEDS: ENOXAPARIN INJ 40 MG/0.4 ML SYR SQ SCH (08:29)
[2018-09-24] MEDS: CEFEPIME 2,000 MG in SYRINGE 7.5 ML IV SCH ×2 (08:30→16:50)
[2018-09-24] MEDS: INSULIN ASPART 100 UNITS/ML 3 ML PEN SC SCH ×4 (08:30→20:16)
[2018-09-24] MEDS: ACETAMINOPHEN 325 MG TAB PO PRN ×2 (15:08→19:25)
--- NOTE | 2018-09-24 15:20 | Hospitalist Progress Note ---
Date of Service September 24, 2018 Assessment & Plan (1) Neutropenic fever: He has febrile neutropenia and remains without localizing signs or symptoms for a bacterial infection. He has not had fever since antibiotics have been started Pt will be continued on iv Cefepime Pi�a remain white blood cell count is at 0.35 (2) Testicular cancer: He has been treated with bleomycin 529, he has a high risk but curable cancer and so maintaining dose-intensity is imperative. Furthermore, bleomycin is not a particularly myelosuppressive agent. As a result, and particularly since he is looking and feeling so well, Dr Guerra will administer his scheduled dose of chemotherapy 09/23. Subjective Patient is slightly fatigued but continues without complaints he has no oral pharyngeal irritation he said no significant diarrhea has no coughing no nausea or vomiting Review of Systems Review of Systems: ROS: well nourished well developed. Only complains of slight fatigue No double vision blurry vision No problems with speech or swallowing No palpitations, chest pain or pressure No Wheezing or breathing issues No abdominal pain nausea vomiting diarrhea changes in appetite or weight No burning urine urine frequency or changes in color No focal joint pain or muscle pain No skin rashes or oral lesions No unusual bruising or bleeding No focused back pain or numbness or loss of strength No changes in memory or confusion Physical Exam Physical Exam: The patient appeared well nourished and normally developed. Vital signs as documented. Head exam is unremarkable. normocephalic, atraumatic, oropharynx is clear Neck is without jugular venous distension, thyromegaly, or lymphademopathy Lungs are clear to auscultation and percussion. Cardiac exam reveals Rhythm is regular. First and second heart sounds normal. Abdominal exam reveals normal bowel sounds, no masses, no organomegaly Extremities are nonedematous and both pedal pulses are present Neurologic exam is A&Ox3, no focal deficits, strength is equal bilateral Psychologically seems neither anxious or depressed Skin is warm Dry without bruises or lesions Results & Data Vital Signs (Past 12 Hours) Vital Signs Temp Pulse Resp BP Pulse Ox 09/24/18 14:55 38.4 C H 107 H 18 119/78 99 09/24/18 11:44 37.3 C 99 H 18 111/70 98 09/24/18 07:00 37.4 C 95 H 18 96/61 L 99 (1) Testicular cancer Descendance of testis: descended Laterality: left Qualified Code(s): 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
[2018-09-25] MEDS: CEFEPIME 2,000 MG in SYRINGE 7.5 ML IV SCH (00:30)
[2018-09-25 06:30] LABS: Hematocrit (blood only) 28.6 % (42-52); Hemoglobin 10.5 g/dL (14.0-18.0); Mean Corpuscular Hgb Conc 36.7 g/dL (32-36); Mean Corpuscular Volume 81.3 fL (80-100); Mean Platelet Volume 8.8 fL (7.4-10.4); Platelet Count 78 K/uL (130-400); RDW Coefficient of Variation 12.4 % (11.5-14.5); RDW Standard Deviation 36.1 fL (36.4-46.3); Red Blood Count 3.52 M/uL (4.7-6.1); White Blood Count 0.68 K/uL (4.8-10.8)
[2018-09-25 06:50] LABS: Basophils # (auto) 0.01 K/uL (0-0.2); Basophils % (auto) 1.5 %; Eosinophils # (auto) 0.01 K/uL (0-0.5); Eosinophils % (auto) 1.5 %; Giant Platelets 1+; Immature Granulocytes # (auto) 0.01 K/uL (0.00-0.02); Immature Granulocytes % (auto) 1.5 %; Lymphocytes # (auto) 0.29 K/uL (1.2-3.4); Lymphocytes % (auto) 42.6 %; Monocytes # (auto) 0.23 K/uL (0.11-0.59); Monocytes % (auto) 33.8 %; Neutrophils # (auto) 0.13 K/uL (1.4-6.5); Neutrophils % (auto) 19.1 %; Toxic Granulation 2+
[2018-09-25] MEDS: ENOXAPARIN INJ 40 MG/0.4 ML SYR SQ SCH (08:33)
[2018-09-25] MEDS: ACETAMINOPHEN 325 MG TAB PO PRN ×3 (08:33→22:42)
[2018-09-25] MEDS: INSULIN ASPART 100 UNITS/ML 3 ML PEN SC SCH ×4 (08:34→21:24)
--- NOTE | 2018-09-25 16:50 | Hematology/Oncology Prog Note ---
Date of Service September 25, 2018 Assessment & Plan (1) Neutropenic fever: He has remained febrile, though he has not manifested any localizing signs or symptoms for a bacterial infection. His cultures have been negative as well. Flu-like symptoms are sometimes seen with bleomycin, but I would also consider repeating some of his cultures, urine studies, and imaging. His counts are recovering and we sometimes see fevers in patients whose counts are rising, particularly when they were very low to start. Finally, bleomycin lung toxicity is sometimes associated with acute fevers. He has no other signs or symptoms to suggest this diagnosis, but I would have a low threshold to check a chest x-ray or CT if his manifests any respiratory symptoms. Since his counts are rising on their own, I do not think he requires GCSF at this point. (2) Testicular cancer: He finished his first cycle of treatment and will be due to meet with Dr. Pierce as an outpatient to discuss cycle 2. He is scheduled for a visit on 10/02. We can move that appointment as needed, depending on the outcome of his hospital stay. Subjective Mr. Apple has had some flu-like symptoms over the last 24-36 hours and has been febrile both days. He continues to deny any localizing signs or symptoms of infection. He had no new issues with the bleomycin. Review of Systems Constitutional: + fever and + fatigue; no sweats and no weight loss Eyes: no worsening vision Ear, Nose, Mouth, Throat: + nasal congestion; no bleeding gums Respiratory: no cough and no dyspnea Cardiovascular: no chest pain, no palpitations and no edema Gastrointestinal: no abdominal pain, no nausea and no diarrhea/loose stools Genitourinary: no dysuria and no urinary frequency Musculoskeletal: no back pain and no joint pain Integumentary: no rash Neurologic: no headache(s) Physical Exam Constitutional: WD/WN, vitals as above Eyes: + anicteric sclerae and EOM intact bilaterally ENMT: external ear and nose normal, oropharynx normal Respiratory: normal respiratory effort, lungs clear to auscultation Cardiovascular: RRR, no murmur, no edema Gastrointestinal (Abdomen): normal bowel sounds, soft, nontender, no hepatosplenomegaly Skin: no rashes, warm and dry Psychiatric: A+Ox3, euthymic affect Lymphatic: no cervical or axillary lymphadenopathy Results & Data Vital Signs (Past 12 Hours) Vital Signs Temp Pulse Resp BP Pulse Ox 09/25/18 16:20 39.3 C H 115 H 18 121/77 99 09/25/18 12:02 37 C 98 H 22 110/71 100 09/25/18 07:49 37.8 C H 107 H 20 107/65 97 Laboratory Results Abnormal lab results 09/24/18 09/24/18 09/25/18 Range/Units 16:43 19:32 06:03 WBC 0.68 L* (4.8-10.8) K/uL RBC 3.52 L (4.7-6.1) M/uL Hgb 10.5 L (14.0-18.0) g/dL Hct 28.6 L (42-52) % MCHC 36.7 H (32-36) g/dL RDW Std Deviation 36.1 L (36.4-46.3) fL Plt Count 78 L (130-400) K/uL Neut # (Auto) 0.13 L* (1.4-6.5) K/uL Lymph # (Auto) 0.29 L (1.2-3.4) K/uL POC Glucose 164 H 145 H (70-99) 09/25/18 09/25/18 Range/Units 08:19 11:47 WBC (4.8-10.8) K/uL RBC (4.7-6.1) M/uL Hgb (14.0-18.0) g/dL Hct (42-52) % MCHC (32-36) g/dL RDW Std Deviation (36.4-46.3) fL Plt Count (130-400) K/uL Neut # (Auto) (1.4-6.5) K/uL Lymph # (Auto) (1.2-3.4) K/uL POC Glucose 125 H 205 H (70-99) (1) Testicular cancer Descendance of testis: descended Laterality: left Qualified Code(s): 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
--- NOTE | 2018-09-25 19:12 | Hospitalist Progress Note ---
Date of Service September 25, 2018 Assessment & Plan (1) Neutropenic fever: He has febrile neutropenia and remains without localizing signs or symptoms for a bacterial infection. He has not had fever since antibiotics have been started Pt will be continued on iv Cefepime White blood cell count is come up to 600 although his ANC remains in the 200 range Remains pancytopenic associate with chemotherapy and transfusion range for his anemia or platelets (2) Testicular cancer: He has been treated with bleomycin 09/24, he has a high risk but curable cancer and so maintaining dose-intensity is imperative. Furthermore, bleomycin is not a particularly myelosuppressive agent. As a result, and particularly since he is looking and feeling so well, Dr Guerra will administer his scheduled dose of chemotherapy 09/23. Neupogen is administered to try to rescue the patient from neutropenic state Subjective Patient continues with some flulike symptoms and some fingertip paresthesias likely effects of his bleomycin. He otherwise has no focal somatic complaints or problems his white blood count is increased somewhat received additional dose of Neupogen on 09/25 Review of Systems Review of Systems: ROS: well nourished well developed. Complains of feeling somewhat fatigued No double vision blurry vision No problems with speech or swallowing No palpitations, chest pain or pressure No Wheezing or breathing issues No abdominal pain nausea vomiting diarrhea changes in appetite or weight No burning urine urine frequency or changes in color No focal joint pain or muscle pain No skin rashes or oral lesions No unusual bruising or bleeding No focused back pain or loss of strength complains of some fingertip paresthesias No changes in memory or confusion Physical Exam Physical Exam: The patient appeared well nourished and normally developed. Does appear to be fatigued today Vital signs as documented. Head exam is unremarkable. normocephalic, atraumatic oropharynx is clear without lesions Neck is without jugular venous distension, thyromegaly, or lymphademopathy Lungs are clear to auscultation and percussion. Cardiac exam reveals Rhythm is regular. First and second heart sounds normal. Abdominal exam reveals normal bowel sounds, no masses, no organomegaly Extremities are nonedematous and both pedal pulses are present Neurologic exam is A&Ox3, strength is equal bilateral Psychologically seems neither anxious or depressed Skin is warm Dry without bruises or lesions Results & Data Vital Signs (Past 12 Hours) Vital Signs Temp Pulse Resp BP Pulse Ox 05/30/19 16:59 38.8 C H 09/25/18 16:20 39.3 C H 115 H 18 121/77 99 09/25/18 12:02 37 C 98 H 22 110/71 100 09/25/18 07:49 37.8 C H 107 H 20 107/65 97 (1) Testicular cancer Descendance of testis: descended Laterality: left Qualified Code(s): 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
[2018-09-25] MEDS ORDERED: FILGRASTIM 480 MCG/1.6 ML VIAL SC STA (19:17)
[2018-09-26] MEDS: ACETAMINOPHEN 325 MG TAB PO PRN (05:53)
[2018-09-26] MEDS ORDERED: ACETAMINOPHEN 65 ML IV SCH (06:15)
[2018-09-26] MEDS ORDERED: ACETAMINOPHEN 65 ML IV PRN (06:16)
[2018-09-26 07:49] LABS: Hemoglobin 10.7 g/dL (14.0-18.0); Mean Corpuscular Hgb Conc 36.9 g/dL (32-36); RDW Coefficient of Variation 12.2 % (11.5-14.5); RDW Standard Deviation 35.9 fL (36.4-46.3); Red Blood Count 3.58 M/uL (4.7-6.1); White Blood Count 3.89 K/uL (4.8-10.8)
[2018-09-26 08:21] LABS: BUN Creatinine Ratio 11.1 (10-20); Calcium 9.1 mg/dl (8.5-10.1); Creatinine Clr Calc Pharmacy 112.6 ml/min; Est GFR (African American) 120.4; Est GFR (Non-African American) 103.9; Potassium 3.4 mmol/L (3.5-5.1)
[2018-09-26] MEDS: INSULIN ASPART 100 UNITS/ML 3 ML PEN SC SCH (08:28)
[2018-09-26] MEDS: ENOXAPARIN INJ 40 MG/0.4 ML SYR SQ SCH (08:28)
[2018-09-26 08:31] LABS: Mean Platelet Volume 9.6 fL (7.4-10.4); Platelet Count 80 K/uL (130-400)
[2018-09-26 08:33] LABS: Dohle Bodies 2+; Giant Platelets 1+; Toxic Granulation 2+
[2018-09-26 08:36] LABS: ALC (manual) 0.52 K/uL (1.2-3.4); Blast # (manual) 0.11 K/uL (0-0); Blast Cells % (manual) 2.7 %; Eosinophils # (manual) 0.04 K/uL (0-0.5); Eosinophils % (manual) 0.9 %; Lymphocytes # (manual) 0.52 K/uL (1.2-3.4); Lymphocytes % (manual) 13.3 %; Metamyelocytes # (manual) 0.07 K/uL (0-0); Metamyelocytes % (manual) 1.8 %; Monocytes # (manual) 0.41 K/uL (0.11-0.59); Monocytes % (manual) 10.6 %; Myelocytes # (manual) 0.04 K/uL (0-0); Myelocytes % (manual) 0.9 %; Neutrophils % (manual) 69.8 %
--- NOTE | 2018-09-26 18:15 | Discharge Summary ---
Date of Service September 26, 2018 Admission HPI Per Admitting Provider 47-year-old male with history of diabetes and recent diagnosis of testicular cancer presents with neutropenic fever. Patient states that he started having upper respiratory symptoms over the weekend. Symptoms include; sore throat, fevers, mouth sores. He denies having nausea/vomiting/diarrhea. He denies abdominal pain. He denies dysuria, shortness of breath, cough, skin lesions. Patient was diagnosed with testicular cancer on July 15 and had a orchiectomy on the . He was discovered to have hilar lymph node involvement and was subsequently started on chemotherapy 3 weeks ago. 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 Discharge Exam Constitutional well developed and average body habitus Eyes no conjunctival abnormality and no scleral abnormality Neck normal visual inspection and trachea midline Respiratory normal respiratory effort; no respiratory distress Auscultation: lungs clear to auscultation bilaterally Cardiovascular RRR, no murmur, no edema Gastrointestinal (Abdomen) normal bowel sounds, soft, nontender, no hepatosplenomegaly Musculoskeletal no cyanosis or clubbing, extremities motor strength 08/31 Discharge Data Allergies Allergy/AdvReac Type Severity Reaction Status Date / Time No Known Allergies Allergy Verified 09/22/18 22:33 Consultations 09/23/18 00:16 ED Decision to Admit Stat Hospital Course (1) Neutropenic fever: He presented with febrile neutropenia and remains without localizing signs or symptoms for a bacterial infection. He has not had fever since antibiotics have been started White blood cell count has been rescued previously had pancytopenia associate with chemotherapy (2) Testicular cancer: He has been treated with bleomycin 09/24, he has a high risk but curable cancer and so maintaining dose-intensity is imperative. Furthermore, bleomycin is not a particularly myelosuppressive agent. As a result, and particularly since he is looking and feeling so well, Dr Guerra will administer his scheduled dose of chemotherapy 09/23. Neupogen was administered to rescue the patient from neutropenic state Total Time Total Time Spent Total Time Spent (In Minutes): greater than 30 minutes were required to prepare discharge Discharge Plan Discharge Items Patient Disposition: Home - Self-Care Reason For Visit: NEUTROPENIC FEVER Discharge Diagnosis: neutropenic fever Discharge Goals: Decrease discomfort and Diagnostic testing Activity: Resume your previous activity Non-emergency contact: Primary Care Provider and Oncologist Call non-emergency contact if: you have any medication questions Follow-up/Referrals: Tim De Paz [Primary Care Provider] - Diet: Regular Addtl Provider Instructions: please keep aware of your physical body and if any new issues occure without reasonable resolution, please see your primary care or oncology doctor Prescriptions: Continued cyanocobalamin (vitamin B-12) [Vitamin B-12] 1,000 mcg Tablet Extended Release 1,000 mcg PO DAILY RF: 0 ondansetron HCl [Zofran] 4 mg tablet 4 mg PO Q6H PRN (Reason: nausea and vomiting) Qty: 7 RF: 0 metformin 500 mg tablet extended release 24 hr 500 mg PO QAM RF: 0 metformin 500 mg tablet extended release 24 hr 1,000 mg PO QPM RF: 0 cholecalciferol (vitamin D3) [Vitamin D3] 2,000 unit Capsule 2,000 unit PO DAILY RF: 0 insulin lispro [Humalog KwikPen Insulin] 100 unit/mL Insulin Pen SUBCUT TID PRN (Reason: Hyperglycemia) RF: 0 Stand-Alone Forms: [facility] Discharge Orders: Discharge Order (Routine); Ordered 09/26/18 Ordered By: Rafi Sanchez Admission Data Admit Date/Time: 09/23/18 01:59 Attending Provider: Rafi Sanchez Admit Provider: Griffin Min Primary Care Provider: Tim De Paz Other Providers: Moiz Warren Service: Medical Other Interventions: Discharge Summary Assessment (RN) Last Done: 09/26/18 11:36 DC Date/Time DO NOT enter until pt leaves facility: 09/26/18 12:49
== END 2018-09-26 12:49 | disposition home or self-care (01) | DRG 810 ==
LOC: ED 21:05 → 4E 09-23 01:59 → SUATTDRO 09-23 01:59 → 4E 09-23 02:10